=== PATIENT | male | born 1995 | race African-American/Black ===

== ENCOUNTER 2021-12-11 12:54 | Emergency (ER) | payer OTHER, SELFPAY ==
[2021-12-11 12:50] VITALS: BP 114/78; PULSE 60; RESP 18; TEMP 36.7; O2SAT 100
[2021-12-11 13:30] VITALS: BP 100/54; PULSE 54; RESP 18; O2SAT 100
[2021-12-11 14:06] LABS: Basophils Percent Auto 0.7 % (0.2-1.2); Hematocrit 42.1 % (42.0-52.0); Hemoglobin 13.6 g/dL (14.0-18.0); Immature Granulocyte Absolute 0.01 K/mm3 (0.00-0.031); Immature Granulocyte Percent A 0.3 % (0-0.5); Lymphocytes Absolute Auto 1.26 K/mm3 (0.9-3.2); Mean Corpuscular HGB Conc 32.3 g/dl (32-36); Mean Corpuscular Hemoglobin 28.5 pg (26-34); Mean Corpuscular Volume 88.3 fl (80-100); Mean Platelet Volume 10.6 fl (7.4-10.4); Monocytes Absolute Auto 0.2 K/mm3 (0.1-0.6); Monocytes Percent Auto 6.8 % (2.6-8.5); Neutrophils Absolute Auto 1.4 K/mm3 (1.3-6.7); Neutrophils Percent Auto 49.2 % (45.5-73.1); Platelet Count Result 184 k/mm3 (150-375); Red Blood Count 4.77 M/mm3 (4.6-6.20); White Blood Count 2.9 K/mm3 (4.5-10.0)
--- NOTE | 2021-12-11 14:15 | ED.SEIZURE ---
HPI - Seizure General Chief Complaint: Seizure Stated Complaint: aura without a seizure Time Seen by Provider: 12/11/21 12:56 Source: patient Mode of arrival: EMS Limitations: no limitations History of Present Illness HPI Narrative: 26-year-old with a history of seizure disorder here with complaints of having aura earlier this morning no seizure , has been taking his seizure medication as prescribed. No fever or chills denies any headache. Related Data Home Medications Medication Instructions Recorded Confirmed clorazepate dipotassium 3.75 mg 3.75 mg PO HS PRN seizure 12/11/21 12/11/21 tablet levetiracetam 1,000 mg tablet 2,000 mg PO BID 12/11/21 12/11/21 (Keppra) montelukast 10 mg tablet 10 mg PO DAILY 12/11/21 12/11/21 (Singulair) topiramate 100 mg tablet 100 mg PO DAILY 12/11/21 12/11/21 topiramate 50 mg tablet 50 mg PO HS 12/11/21 12/11/21 Allergies Allergy/AdvReac Type Severity Reaction Status Date / Time No Known Allergies Allergy Verified 12/11/21 14:22 Review of Systems Review of Systems: All systems reviewed & are unremarkable except as noted in HPI and below Constitutional: Constitutional: Reports no additional constitutional complaints Eyes: Eyes: Reports no additional eye complaints ENT: Reports system reviewed and no additional complaints, except as documented Cardiovascular: Cardiovascular: Reports no additional cardiovascular complaints Respiratory: Respiratory: Reports no additional respiratory complaints Musculoskeletal: Musculoskeletal: Reports no additional musculoskeletal complaints Integumentary/Breasts: Skin/Breast: Reports system reviewed and no additional complaints, except as docu Neurologic: Reports as per HPI Exam Narrative: GENERAL: Well-appearing, well-nourished, and in no acute distress. HEAD: Normocephalic, atraumatic. EYES: PERRLA and EOMI. NECK: Supple. CHEST: Clear to auscultation. No respiratory distress. HEART: Regular rate and rhythm. No murmur heard. Normal peripheral pulses. ABDOMEN: Soft, nontender, nondistended, normal active bowel sounds. EXTREMITIES: Normal range of motion. No edema. SKIN: Warm, dry, no rash. NEURO: No focal deficits. Alert and oriented x3. PSYCH: Normal mood and affect. Course Course Emergency Course: Patient comfortably resting on bed in no distress has had no further seizure activity. He states that he did not have any further episodes of fall or here in the ER. I did inform him about his lab work. Advised him to continue his home medication. Follow-up with his neurologist as scheduled. Vital Signs Vital signs: Vital Signs Temperature 36.7 C 12/11/21 12:50 Pulse Rate 60 12/11/21 12:50 Respiratory Rate 18 12/11/21 12:50 Blood Pressure 114/78 12/11/21 12:50 Pulse Oximetry 100 12/11/21 12:50 Oxygen Delivery Room Air 12/11/21 12:50 Temperature 36.7 C 12/11/21 12:50 Pulse Rate 60 12/11/21 12:50 Respiratory Rate 18 12/11/21 12:50 Blood Pressure 114/78 12/11/21 12:50 Pulse Oximetry 100 12/11/21 12:50 Oxygen Delivery Room Air 12/11/21 12:50 MDM - Seizure Lab Data Result diagrams: 12/11/21 13:53 12/11/21 13:53 Labs: Lab Results 12/11/21 12/11/21 12/11/21 Range/Units 13:53 13:53 13:53 WBC 2.9 L (4.5-10.0) K/mm3 RBC 4.77 (4.6-6.20) M/mm3 Hgb 13.6 L (14.0-18.0) g/dL Hct 42.1 (42.0-52.0) % MCV 88.3 (80-100) fl MCH 28.5 (26-34) pg MCHC 32.3 (32-36) g/dl RDW 14.0 (11.5-14.5) % Plt Count 184 (150-375) k/mm3 MPV 10.6 H (7.4-10.4) fl Immature Gran % (Auto) 0.3 (0-0.5) % Neut % (Auto) 49.2 (45.5-73.1) % Lymph % (Auto) 43.0 (18.3-44.2) % Hill % (Auto) 6.8 (2.6-8.5) % Eos % (Auto) 0.0 (0-4.4) % Baso % (Auto) 0.7 (0.2-1.2) % Lymph # (Auto) 1.26 (0.9-3.2) K/mm3 Hill # (Auto) 0.2 (0.1-0.6) K/mm3 Eos # (Auto) 0.0 (0-0.3) K/mm3 Baso # (Auto) 0.0 (0.
[2021-12-11 14:19] LABS: Ethanol < 10 mg/dL (<10)
[2021-12-11 14:29] LABS: Alanine Aminotransferase 21 U/L (6-50); Albumin Level 4.4 g/dL (3.5-5.1); Alkaline Phosphatase 41 U/L (38-126); Anion Gap 12 mmol/L (8-16); Aspartate Amino Transferase 23 U/L (17-59); Bilirubin,Total 0.3 mg/dL (0.2-1.3); Blood Urea Nitrogen 16 mg/dL (9-20); Calcium 8.9 mg/dL (8.4-10.2); Carbon Dioxide 18 mmol/L (22-30); Chloride 111 mmol/L (98-107); Estimated CRCL calculation 103 ml/min; Estimated Glomerular Filt Rate > 60; Glucose 91 mg/dL (65-110); Potassium 4.1 mmol/L (3.4-5.0); Sodium 141 mmol/L (137-145)
[2021-12-11 15:00] VITALS: BP 120/70; PULSE 60; RESP 18; O2SAT 100
[2021-12-11 15:16] LABS: Appearance Urine Clear (Clear); Bilirubin Urine Negative (Negative); Blood Urine Negative (Negative); Color Urine Yellow (Yellow); Glucose Urine UA Negative (Negative); Ketones Urine Negative (Negative); Leukocyte Esterase Ur Negative LEU/UL (Negative); Nitrate Urine Negative (Negative); Protein Urine Negative (Negative); Specific Grav Ur 1.025 (1.001-1.035); pH Urine 6.5 (5.0-9.0)
[2021-12-11 15:20] LABS: Bacteria Urine Trace /hpf; Mucus Urine Rare /lpf; RBC Urine 0-2 /hpf (0-2); Squamous Epithelial Cell Urine Rare /hpf (Few)
[2021-12-11 15:28] LABS: Add Urine Microscopic? NO
[2021-12-11 15:45] VITALS: BP 107/67; PULSE 58; RESP 18; O2SAT 100
[2021-12-11] MEDS: ACETAMINOPHEN 325 MG TABLET 650 MG PO (15:46)
== END 2021-12-11 15:50 | disposition home or self-care (01) ==
PROVIDERS: Emergency Provider Family Medicine
DX: G40.909 Epilepsy, unspecified, not intractable, without status epilepticus (principal)
CPT/HCPCS: 36415; 80053; 80307; 81003; 85025; 99283; A9270

== ENCOUNTER 2022-02-25 09:38 | Emergency (ER) | payer OTHER, SELFPAY ==
[2022-02-25 09:37] VITALS: BP 119/63; PULSE 61; RESP 13; TEMP 37; O2SAT 99
--- NOTE | 2022-02-25 09:49 | ED.SEIZURE ---
HPI - Seizure General Chief Complaint: Seizure Stated Complaint: feels like he is going to have a seizure Time Seen by Provider: 02/25/22 09:40 History of Present Illness HPI Narrative: Patient with a history of seizures presents today because he feels like a seizure is coming on, he states has visual aura is a feeling of tightness to his left side of head, and when this happens he takes a dose of his clonazepam and then the aura goes away he does not end up having a seizure. He did already take a dose at home and he states that his symptoms have already resolved and he is feeling at his baseline now. His last actual seizure was 7 years ago, he last saw his neurologist a month ago, he is maintained on Topamax and Keppra. Related Data Home Medications Medication Instructions Recorded Confirmed clorazepate dipotassium 3.75 mg 3.75 mg PO HS PRN seizure 12/11/21 12/11/21 tablet levetiracetam 1,000 mg tablet 2,000 mg PO BID 12/11/21 12/11/21 (Keppra) montelukast 10 mg tablet 10 mg PO DAILY 12/11/21 12/11/21 (Singulair) topiramate 100 mg tablet 100 mg PO DAILY 12/11/21 12/11/21 topiramate 50 mg tablet 50 mg PO HS 12/11/21 12/11/21 Allergies Allergy/AdvReac Type Severity Reaction Status Date / Time No Known Allergies Allergy Verified 12/11/21 14:22 Review of Systems Review of Systems: CONST: No fever. HEENT: Very mild head pain C/V: No chest pain RESP: No cough GI: No nausea or vomiting : No dysuria. M/S: No joint pain. SKIN: No rash. NEURO: Sensation of aura/headache PSYCH: [No depression] [facility] Past Medical History Medical History (Updated 02/25/22 @ 10:35 by Shawna Umana MD) Seizure Surgical History Surgical History (Updated 02/25/22 @ 09:50 by Shawna Umana MD) No significant past surgical history Exam Narrative: EXAMINATION OF ORGAN SYSTEMS/BODY AREAS: Constitutional: Vital signs per nursing GENERAL:[No acute distress, non-toxic appearing.] HEAD: Normal with no signs of head trauma. EYES: EOMI, conjunctiva normal, PERRL ENT: Hearing grossly intact LUNGS: Nonlabored breathing. HEART: [Regular rate and rhythm] ABD: No distension EXT: Normal range of motion SKIN: [No rashes or lesions.] NEURO: [Alert and oriented x 3. No gross focal sensory or strength deficits.] PSYCH: Slow/blunted affect Course Vital Signs Vital signs: Vital Signs Temperature 98.6 F 02/25/22 09:37 Pulse Rate 61 02/25/22 09:37 Respiratory Rate 13 02/25/22 09:37 Blood Pressure 119/63 02/25/22 09:37 Pulse Oximetry 99 02/25/22 09:37 Temperature 98.6 F 02/25/22 09:37 Pulse Rate 57 L 02/25/22 10:15 Respiratory Rate 16 02/25/22 10:15 Blood Pressure 102/81 02/25/22 10:15 Pulse Oximetry 97 02/25/22 10:15 MDM - Seizure MDM Narrative Medical decision making narrative: 26-year-old male with history of seizures presents with aura, he has now resolved after taking his home meds. He is well-appearing here with normal vital signs and neurologic exam, his symptoms have resolved we will keep an eye on him for while in the ER and if he continues to be asymptomatic I do feel he is stable for discharge home, he has a neurologist follow-up with and does not miss any of his antiseizure medicines and he still has enough pills. Return precautions provided. Patient has been observed and is still well-appearing; stable for discharge home. Lab Data Labs: Lab Results 02/25/22 Range/Units 10:15 POC Capillary Glucose 94 (65-105) mg/dl Discharge Plan Discharge Clinical Impression: Aura Patient Disposition: Home, Self-Care Condition: Stable Instructions: Antibiotic Form, Epilepsy (ED) Additional Instructions: Please follow up with your neurologist in the next 2 days and get lots of rest today. Feel free to return for any further issues. Prescriptions: No Action levetiracetam [Keppra] 1,000 mg Tablet 2,000 mg PO BID clorazepate dipotassium 3.75 m
[2022-02-25 10:15] VITALS: BP 102/81; PULSE 57; RESP 16; O2SAT 97
[2022-02-25 10:18] LABS: Glucose Point of Care 94 mg/dl (65-105)
== END 2022-02-25 10:54 | disposition home or self-care (01) ==
PROVIDERS: Emergency Provider Emergency Medicine
DX: G40.909 Epilepsy, unspecified, not intractable, without status epilepticus (principal)
CPT/HCPCS: 82948; 99283

== ENCOUNTER 2022-11-29 21:04 | Emergency (ER) | payer OTHER, SELFPAY ==
[2022-11-29 21:00] VITALS: PULSE 73; RESP 20; TEMP 36.9; O2SAT 98
[2022-11-29 21:06] VITALS: O2SAT 97
--- NOTE | 2022-11-29 21:09 | ECG_ITS ---
Measurements Intervals [place] Rate: 78 P: 59 ME: 170 QRS: 83 QRSD: 101 T: 48 QT: 375 QTc: 429 Interpretive Statements SINUS RHYTHM INCOMPLETE RIGHT BUNDLE BRANCH BLOCK NONSPECIFIC T-WAVE ABNORMALITY- ANTERIOR LEADS BORDERLINE ECG NO PREVIOUS ECG AVAILABLE FOR COMPARISON Electronically Signed On 11-30-2022 7:13:21 CDT by Jose Segovia D.O.
--- NOTE | 2022-11-29 21:26 | ED.GENADULT ---
HPI - General Adult General Chief complaint: Altered Mental Status Stated complaint: AMS, POSSIBLE SEIZURE Time Seen by Provider: 11/29/22 21:12 History of Present Illness HPI narrative: See patient [id number] gentleman who presents the emergency department with chief complaint of feeling strange and nausea. The patient reports he has prior history of seizures and reports that this evening he started feeling nauseated and had a little bit of a headache and has vomited a few times the patient states he also has some cramping in his abdomen the patient reports that he has not had a seizure in about 6 years but has been seen in the emergency department about a year ago for an episode of aura the patient states that he had no fever no chills was reported in triage that the patient did smoke marijuana and also drink alcohol today Related Data Home Medications Medication Instructions Recorded Confirmed clorazepate dipotassium 3.75 mg 3.75 mg PO HS PRN seizure 12/11/21 12/11/21 tablet levetiracetam 1,000 mg tablet 2,000 mg PO BID 12/11/21 12/11/21 (Keppra) montelukast 10 mg tablet 10 mg PO DAILY 12/11/21 12/11/21 (Singulair) topiramate 100 mg tablet 100 mg PO DAILY 12/11/21 12/11/21 topiramate 50 mg tablet 50 mg PO HS 12/11/21 12/11/21 Allergies Allergy/AdvReac Type Severity Reaction Status Date / Time No Known Allergies Allergy Verified 12/11/21 14:22 Review of Systems Review of Systems: A 10 system review of systems was completed on the patient and is negative except for what is stated in the HPI. Nursing and ancillary documentation was reviewed. PMFSH Past Medical History Medical History Seizure Surgical History Surgical History No significant past surgical history Exam Narrative: GENERAL: Well-appearing, well-nourished, and in no acute distress. HEAD: Normocephalic, atraumatic. EYES: PERRLA and EOMI. ENT: Nares clear, no rhinorrhea or epistaxis. Mucous membranes moist. NECK: Supple. CHEST: Clear to auscultation. No respiratory distress. HEART: Regular rate and rhythm. No murmur heard. Normal peripheral pulses. ABDOMEN: Soft, nontender, nondistended, normal active bowel sounds. EXTREMITIES: Normal range of motion. No edema. SKIN: Warm, dry, no rash. NEURO: No focal deficits. Alert and oriented x3. PSYCH: Normal mood and affect. Course Vital Signs Vital signs: Vital Signs Temperature 36.9 C 11/29/22 21:00 Pulse Rate 73 11/29/22 21:00 Respiratory Rate 20 11/29/22 21:00 Pulse Oximetry 98 11/29/22 21:00 Oxygen Delivery Room Air 11/29/22 21:00 Temperature 36.9 C 11/29/22 21:00 Pulse Rate 73 11/29/22 21:00 Respiratory Rate 20 11/29/22 21:00 Pulse Oximetry 97 11/29/22 21:06 Oxygen Delivery Room Air 11/29/22 21:06 Medical Decision Making Vital Signs Vital Signs: Vital Signs Temperature 36.9 C 11/29/22 21:00 Pulse Rate 73 11/29/22 21:00 Respiratory Rate 20 11/29/22 21:00 Pulse Oximetry 98 11/29/22 21:00 Oxygen Delivery Room Air 11/29/22 21:00 Temperature 36.9 C 11/29/22 21:00 Pulse Rate 73 11/29/22 21:00 Respiratory Rate 20 11/29/22 21:00 Pulse Oximetry 97 11/29/22 21:06 Oxygen Delivery Room Air 11/29/22 21:06 Lab Data 11/29/22 21:32 11/29/22 21:32 Labs: Lab Results 11/29/22 11/29/22 11/29/22 Range/Units 21:31 21:32 23:03 WBC 3.7 L (4.5-10.0) K/mm3 RBC 4.63 (4.6-6.20) M/mm3 Hgb 13.4 L (14.0-18.0) g/dL Hct 40.8 L (42.0-52.0) % MCV 88.1 (80-100) fl MCH 28.9 (26-34) pg MCHC 32.8 (32-36) g/dl RDW 13.4 (11.5-14.5) % Plt Count 161 (150-375) k/mm3 MPV 10.9 H (7.4-10.4) fl Immature Gran % (Auto) 0.0 (0-0.5) % Neut % (Auto) 41.7 L (45.5-73.1) % Lymph % (Auto) 50.8 H (18
[2022-11-29 21:37] LABS: Basophils Percent Auto 0.5 % (0.2-1.2); Hematocrit 40.8 % (42.0-52.0); Hemoglobin 13.4 g/dL (14.0-18.0); Lymphocytes Absolute Auto 1.88 K/mm3 (0.9-3.2); Lymphocytes Percent Auto 50.8 % (18.3-44.2); Mean Corpuscular HGB Conc 32.8 g/dl (32-36); Mean Corpuscular Hemoglobin 28.9 pg (26-34); Mean Corpuscular Volume 88.1 fl (80-100); Mean Platelet Volume 10.9 fl (7.4-10.4); Monocytes Absolute Auto 0.3 K/mm3 (0.1-0.6); Neutrophils Absolute Auto 1.5 K/mm3 (1.3-6.7); Neutrophils Percent Auto 41.7 % (45.5-73.1); Platelet Count Result 161 k/mm3 (150-375); Red Blood Count 4.63 M/mm3 (4.6-6.20); Red Cell Distribution Width 13.4 % (11.5-14.5); White Blood Count 3.7 K/mm3 (4.5-10.0)
[2022-11-29] MEDS: SODIUM CHLORIDE 0.9% IV 1,000 ML 999 ML IV CONT (21:43)
[2022-11-29] MEDS: ONDANSETRON INJ 4 MG/2 ML VIAL IV PUSH (21:43)
[2022-11-29 21:48] LABS: INR 1.1; Prothrombin Time 14.7 Seconds (11.1-14.7)
[2022-11-29 21:49] LABS: Partial Thromboplastin Time 29.8 SECONDS (22.3-36.8)
[2022-11-29 21:50] LABS: Alanine Aminotransferase 26 U/L (6-50); Alkaline Phosphatase 43 U/L (38-126); Anion Gap 6 mmol/L (8-16); Aspartate Amino Transferase 27 U/L (17-59); Bilirubin,Total 0.4 mg/dL (0.2-1.3); Blood Urea Nitrogen 15 mg/dL (9-20); Calcium 8.6 mg/dL (8.4-10.2); Carbon Dioxide 18 mmol/L (22-30); Chloride 113 mmol/L (98-107); Estimated CRCL calculation 113 ml/min; Estimated Glomerular Filt Rate > 60; Glucose 93 mg/dL (65-110); Potassium 3.6 mmol/L (3.4-5.0); Sodium 137 mmol/L (137-145)
[2022-11-29 22:32] LABS: Ethanol < 10 mg/dL (<10)
[2022-11-29 23:23] LABS: Appearance Urine Clear (Clear); Bacteria Urine None Seen /hpf; Bilirubin Urine Negative (Negative); Blood Urine Negative (Negative); Color Urine Yellow (Yellow); Glucose Urine UA Negative (Negative); Ketones Urine Negative (Negative); Leukocyte Esterase Ur 1+ LEU/UL (Negative); Nitrate Urine Negative (Negative); Non Pathogenic Casts 0-2; Protein Urine Negative (Negative); RBC Urine 0-2 /hpf (0-2); Specific Grav Ur 1.027 (1.001-1.035); Squamous Epithelial Cell Urine None seen /hpf (Few)
[2022-11-29 23:31] LABS: Add Urine Microscopic? YES
[2022-11-30] MEDS: cefTRIAXone 1 GM VIAL IM (00:01)
[2022-11-30] MEDS: DOXYCYCLINE HYCLATE 100 MG TABLET PO (00:02)
[2022-11-30] MEDS: WATER, STERILE FOR INJECTION 10 ML VIAL XX (00:07)
--- NOTE | 2022-11-30 00:10 | PC.NURSE ---
This RN used sterile water to dilute IM Rocephin.
[2022-11-30 00:12] VITALS: BP 140/90; PULSE 70; RESP 18; O2SAT 100
== END 2022-11-30 00:13 | disposition home or self-care (01) ==
PROVIDERS: Emergency Medicine; Emergency Provider Emergency Medicine
DX: N39.0 Urinary tract infection, site not specified (principal); R11.0 Nausea; R56.9 Unspecified convulsions; I45.10 Unspecified right bundle-branch block; R94.31 Abnormal electrocardiogram [ECG] [EKG]
CPT/HCPCS: 36415; 80053; 80307; 81001; 85025; 85610; 85730; 87086; 87491; 87591; 93005; 96361; 96372; 96374; 99284; A9270; J0696; J2405; J7030

== ENCOUNTER 2023-06-02 13:10 | Emergency (ER) | payer SELFPAY ==
[2023-06-02 13:39] VITALS: BP 117/67; PULSE 75; RESP 18; TEMP 36.6; O2SAT 100
--- NOTE | 2023-06-02 15:08 | ED.GENADULT ---
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 unknown last Tdap. Reports CHAVIS is at a 4 or 5/10 GENERAL: Well-appearing, well-nourished, and in no acute distress. HEAD: Normocephalic, atraumatic. CHEST: Clear to auscultation. ?No respiratory distress. HEART: Regular rate and rhythm.? NEURO: ?Alert and oriented x3. Patient screened in triage and initial orders placed.? ?Additional care and disposition to be based upon?diagnostic testing and treatment. Related Data Home Medications Medication Instructions Recorded Confirmed clorazepate dipotassium 3.75 mg 3.75 mg PO HS PRN seizure 12/11/21 12/11/21 tablet levetiracetam 1,000 mg tablet 2,000 mg PO BID 12/11/21 12/11/21 (Keppra) montelukast 10 mg tablet 10 mg PO DAILY 12/11/21 12/11/21 (Singulair) topiramate 100 mg tablet 100 mg PO DAILY 12/11/21 12/11/21 topiramate 50 mg tablet 50 mg PO HS 12/11/21 12/11/21 Allergies Allergy/AdvReac Type Severity Reaction Status Date / Time No Known Allergies Allergy Verified 06/02/23 13:10 [facility] Past Medical History Medical History Seizure Surgical History Surgical History No significant past surgical history Course Vital Signs Vital signs: Vital Signs Temperature 36.6 C 06/02/23 13:39 Pulse Rate 75 06/02/23 13:39 Respiratory Rate 18 06/02/23 13:39 Blood Pressure 117/67 06/02/23 13:39 Pulse Oximetry 100 06/02/23 13:39 Oxygen Delivery Room Air 06/02/23 13:39 Temperature 36.6 C 06/02/23 13:39 Pulse Rate 75 06/02/23 13:39 Respiratory Rate 18 06/02/23 13:39 Blood Pressure 117/67 06/02/23 13:39 Pulse Oximetry 100 06/02/23 13:39 Oxygen Delivery Room Air 06/02/23 13:39 Medical Decision Making Vital Signs Vital Signs: Vital Signs Temperature 36.6 C 06/02/23 13:39 Pulse Rate 75 06/02/23 13:39 Respiratory Rate 18 06/02/23 13:39 Blood Pressure 117/67 06/02/23 13:39 Pulse Oximetry 100 06/02/23 13:39 Oxygen Delivery Room Air 06/02/23 13:39 Temperature 36.6 C 06/02/23 13:39 Pulse Rate 75 06/02/23 13:39 Respiratory Rate 18 06/02/23 13:39 Blood Pressure 117/67 06/02/23 13:39 Pulse Oximetry 100 06/02/23 13:39 Oxygen Delivery Room Air 06/02/23 13:39 Discharge Plan Discharge Clinical Impression: Laceration Patient Disposition: Elopement After Seen by Prov Condition: Stable Prescriptions: No Action levetiracetam [Keppra] 1,000 mg Tablet 2,000 mg PO BID clorazepate dipotassium 3.75 mg Tablet 3.75 mg PO HS PRN (Reason: seizure) Rx Instructions: may repeat with 1 additional dose in 30-60 minutes if needed montelukast [Singulair] 10 mg Tablet 10 mg PO DAILY topiramate 100 mg Tablet 100 mg PO DAILY topiramate 50 mg Tablet 50 mg PO HS doxycycline hyclate 100 mg tablet 100 mg PO BID Qty: 14 0RF ondansetron 4 mg tablet,disintegrating 4 mg PO Q8H PRN (Reason: nausea and vomiting) Qty: 10 0RF Follow-up/Referrals: PHYSICIAN NOT ON STAFF,NONSTAFF [Primary Care Provider] -
[2023-06-02] MEDS: ACETAMINOPHEN 500 MG TABLET 1000 MG PO (16:20)
--- NOTE | 2023-06-02 16:20 | PC.NURSE ---
Pt at Intake Desk, cursing at RN about the wait time. RN apologized for pt wait time, continues to be belligerent with staff stating You ain't doing nothing for me. My eye needs clean referring to laceration to left eyebrow. RN informed pt that his laceration will be thoroughly cleansed once he is in exam room. No active bleeding or drainage noted from wound. Pt walked away cursing.
[2023-06-02] MEDS: TETANUS,DIPHTHERIA,AC PERTUSSIS ADULT (0.5 ML) BOOSTRIX IM (16:21)
--- NOTE | 2023-06-02 17:25 | PC.NURSE ---
Pt yelling and cursing at security about length of time he has been here. Security escorted pt out of department
== END 2023-06-02 17:25 | disposition left against medical advice (07) ==
PROVIDERS: Emergency Provider Nurse Practitioner Family
DX: S01.112A Laceration without foreign body of left eyelid and periocular area, initial encounter (principal); Z23 Encounter for immunization; W45.8XXA Other foreign body or object entering through skin, initial encounter
CPT/HCPCS: 90715; 99199; A9270

== ENCOUNTER 2023-10-28 13:18 | Emergency (ER) | payer OTHER, SELFPAY ==
[2023-10-28] VITALS (24 sets, daily range): BP systolic 97–166; BP diastolic 42–126; PULSE 55–82; RESP 12–26; TEMP 36.2–37; O2SAT 95–100
--- NOTE | 2023-10-28 14:46 | ED.GENADULT ---
HPI - General Adult General Chief complaint: Unspecified Stated complaint: felt like having a seizure Time Seen by Provider: 10/28/23 14:45 History of Present Illness HPI narrative: Patient is a 28-year-old male with history of seizures here with an aura feeling like he was going to have a seizure that happened earlier today while he was at work. Patient states that he was at work and feeling overheated when he began having a bright light in front of his eyes and felt as though he was going to have a seizure. He did not have any seizure-like activity. He states that few times a year he has these auras sensations but his last actual seizure was about 8 years ago. He is on topiramate and Keppra, has been adherent to his medications, follows with neurologist out of [place]. He last saw his neurologist about 4 months ago, usually sees them twice a year. He denies any recent illness. Denies any trauma. He states that he feels back to his normal self at this time. Related Data Home Medications Medication Instructions Recorded Confirmed clorazepate dipotassium 3.75 mg 3.75 mg PO HS PRN seizure 12/11/21 12/11/21 tablet levetiracetam 1,000 mg tablet 2,000 mg PO BID 12/11/21 12/11/21 (Keppra) montelukast 10 mg tablet 10 mg PO DAILY 12/11/21 12/11/21 (Singulair) topiramate 100 mg tablet 100 mg PO DAILY 12/11/21 12/11/21 topiramate 50 mg tablet 50 mg PO HS 12/11/21 12/11/21 Allergies Allergy/AdvReac Type Severity Reaction Status Date / Time No Known Allergies Allergy Verified 06/02/23 13:10 Review of Systems Review of Systems: All systems reviewed & are unremarkable except as noted in HPI and below PMFSH Past Medical History Medical History Seizure Surgical History Surgical History No significant past surgical history Exam Narrative: GENERAL: Well-appearing, well-nourished, and in no acute distress. HEAD: Normocephalic, atraumatic. EYES: PERRLA and EOMI. ENT: Nares clear. Mucous membranes moist. NECK: Supple. CHEST: Clear to auscultation. No respiratory distress. HEART: Regular rate and rhythm. Normal peripheral pulses. ABDOMEN: Soft, nontender, nondistended. EXTREMITIES: Normal range of motion. No edema. SKIN: Warm, dry, no rash. NEURO: No focal deficits. Alert and oriented x3. PSYCH: Normal mood and affect. Course Course Emergency Course: Chart review performed. Patient here after having an aura for a seizure without any actual seizure. Triage vitals normal. Multiple visits for similar in the past. He appears to previously have been on Keppra 2000 BID and topamax. Patient seen evaluated, nontoxic appearing, he is here with a seizure aura without any actual seizure like activity. Will load with additional 1 g of Keppra, provide IV fluids, do basic lab work, place him in seizure precautions and monitor for any seizure-like activity. Anticipate he will likely be able to be discharged with follow-up with his neurologist. Patient agreeable to workup and plan. Lab work and imaging reviewed, CBC appears to be at his baseline in our system, electrolytes, renal function within normal limits. No seizure-like activity witnessed here in the emergency department. He did receive Keppra load. Blood pressure normal at time of discharge. The results of pertinent diagnostic studies and exam findings were discussed. The patient?s provisional diagnosis and plan of care were discussed with the patient and present family. The patient and/or present family expressed understanding of the diagnosis and plan. The nurse was instructed to provide written instructions and appropriate follow-up information. The patient understands their need and responsibility to obtain additional follow-up as instructed. The risks of medications administered and prescribed were discussed with the patient an
--- NOTE | 2023-10-28 14:47 | ECG_ITS ---
Test Date: 2023-10-28 14:58:45 Measurements Intervals [place] Rate: 56 P: 5 MN: 179 QRS: 47 QRSD: 114 T: 19 QT: 386 QTc: 373 Interpretive Statements SINUS BRADYCARDIA INCOMPLETE RIGHT BUNDLE BRANCH BLOCK No previous ECG available for comparison Electronically Signed On 10-29-2023 11:44:33 CDT by Eli Bardales M.D.
[2023-10-28 16:01] LABS: Basophils Percent Auto 0.6 % (0.2-1.2); Hematocrit 41.3 % (42.0-52.0); Hemoglobin 13.7 g/dL (14.0-18.0); Immature Granulocyte Absolute 0.01 K/mm3 (0.00-0.031); Immature Granulocyte Percent A 0.3 % (0-0.5); Lymphocytes Absolute Auto 1.35 K/mm3 (0.9-3.2); Lymphocytes Percent Auto 43.1 % (18.3-44.2); Mean Corpuscular HGB Conc 33.2 g/dl (32-36); Mean Corpuscular Hemoglobin 28.8 pg (26-34); Mean Corpuscular Volume 86.9 fl (80-100); Mean Platelet Volume 11.4 fl (7.4-10.4); Monocytes Absolute Auto 0.3 K/mm3 (0.1-0.6); Neutrophils Absolute Auto 1.5 K/mm3 (1.3-6.7); Platelet Count Result 160 k/mm3 (150-375); Red Blood Count 4.75 M/mm3 (4.6-6.20); Red Cell Distribution Width 13.2 % (11.5-14.5); White Blood Count 3.1 K/mm3 (4.5-10.0)
[2023-10-28 16:10] LABS: Alanine Aminotransferase 23 U/L (6-50); Albumin Level 4.1 g/dL (3.5-5.1); Alkaline Phosphatase 47 U/L (38-126); Anion Gap 6 mmol/L (4-12); Aspartate Amino Transferase 25 U/L (17-59); Bilirubin,Total 0.4 mg/dL (0.2-1.3); Blood Urea Nitrogen 20 mg/dL (9-20); Calcium 8.7 mg/dL (8.4-10.2); Carbon Dioxide 19 mmol/L (22-30); Chloride 115 mmol/L (98-107); Estimated CRCL calculation 112 ml/min; Estimated Glomerular Filt Rate > 60; Glucose 101 mg/dL (65-110); Potassium 3.8 mmol/L (3.4-5.0); Sodium 140 mmol/L (137-145)
[2023-10-28] MEDS: levETIRAcetam 1000MG/NACL100ML 1,000 MG/100 ML BAG 400 MG IVPB (16:26)
[2023-10-28] MEDS: LACTATED RINGERS 1,000 ML 999 ML IV CONT (16:27)
[2023-10-30 07:09] LABS: Levetiracetam Keppra 33.9 mcg/mL (6.0-46.0)
== END 2023-10-28 18:01 | disposition home or self-care (01) ==
PROVIDERS: Emergency Provider Student in an Organized Health Care Education/Training Program
DX: R56.9 Unspecified convulsions (principal)
CPT/HCPCS: 36415; 80053; 80177; 83735; 85025; 93005; 96361; 96365; 99284; J1953; J7120